=== PATIENT | female | born 1975 | race Caucasian/White ===

== ENCOUNTER → 2017-01-16 | Outpatient (CLI) | payer OTHER ==
--- NOTE | 2017-01-16 10:52 | Diagnostic Imaging Report ---
EXAMINATION: Right breast diagnostic mammogram with tomography evaluation. The current study was also evaluated with a Computer Aided Detection (CAD) system. INDICATION: Asymmetries in the right breast along the medial inferior aspect. FINDINGS: There are background scattered fibroglandular densities. The asymmetries seen on the prior mobile screening exam in the medial inferior right breast demonstrate suggestion of summation artifact of parenchyma with no definite underlying mass. IMPRESSION: The previously seen asymmetries are favored to be related to summation artifact of parenchyma with no definite underlying focal mass. An ultrasound evaluation is pending. ACR BI-RADS Category 0: Incomplete. (Needs additional imaging evaluation). Result letter will be mailed to the patient. Note: At least 10% of breast cancer is not imaged by mammography. Dictated by: Dictated on workstation # [id number]
--- NOTE | 2017-01-16 10:56 | Diagnostic Imaging Report ---
EXAMINATION: Right breast ultrasound. INDICATION: Medial inferior right breast asymmetries. FINDINGS: The 4 quadrants and retroareolar region of the right breast were scanned with no underlying abnormality seen. IMPRESSION: Negative study. Also, additional mammogram and tomographic evaluation demonstrated no convincing underlying lesion, suggestive of summation artifact of parenchyma. Return to annual screening mammogram. ACR BI-RADS Category 1: Negative. Dictated by: Dictated on workstation # [id number]
== END ==
LOC: RAD 07:30
PROVIDERS: ATTEND Nurse Practitioner Family
DX: N64.89 Other specified disorders of breast (principal)
CPT/HCPCS: 76641